=== PATIENT | female | born 1945 | race Caucasian/White ===

== ENCOUNTER 2023-06-28 16:28 | Emergency (ER) | payer BC, OTHER ==
[2023-06-28 16:37] VITALS: BP 162/90; PULSE 100; RESP 18; TEMP 97.8; BMI 24.0
[2023-06-28] MEDS ORDERED: ACETAMINOPHEN 500 MG TABLET (FP) PO ONE (17:01)
[2023-06-28] MEDS ORDERED: ACETAMINOPHEN 500 MG TABLET (FP) ONE ×2 (17:11→17:23)
== END 2023-06-28 19:14 | disposition home or self-care (01) ==
LOC: JERFT 16:28
PROC: 2W3FX1Z Immobilization of Left Hand using Splint (ICD-10-PCS; principal; 2023-06-28)
DX: S52.502A Unspecified fracture of the lower end of left radius, initial encounter for closed fracture (principal); M25.532 Pain in left wrist; R22.32 Localized swelling, mass and lump, left upper limb; W01.0XXA Fall on same level from slipping, tripping and stumbling without subsequent striking against object, initial encounter
CPT/HCPCS: 73090-TC-LT-FY; 73110-TC-LT-FY; 73130-TC-LT-FY; 99283-25